=== PATIENT | female | born 1980 | race Hispanic/Latino ===

== ENCOUNTER 2016-10-11 15:51 | Outpatient (CLI) | payer MEDICAID ==
[2016-10-11 17:29] VITALS: BP 139/83
--- NOTE | 2016-10-12 08:05 | Ultrasound Report ---
ULTRASOUND BIOPHYSICAL PROFILE: History: well being Technique: Transabdominal ultrasound with Doppler interrogation. 2 - breathing movements 2 - movements 2 - posture and tone 2 - Qualitative amniotic fluid volume 8 - TOTAL SCORE OF POSSIBLE 8 Heart Rate (bpm) 124
--- NOTE | 2016-10-12 08:06 | Ultrasound Report ---
ULTRASOUND OB LIMITED History: well being Technique: Transabdominal ultrasound with Doppler interrogation. Gestation: Medel Position: Cephalic Amniotic Fluid: Normal HARVEY = 7.4 cm Heart Rate: 129 BPM
== END 2016-10-11 18:45 | disposition home or self-care (01) ==
LOC: TRG 15:51
PROVIDERS: ATTEND Obstetrics & Gynecology
DX: O47.03 False labor before 37 completed weeks of gestation, third trimester (principal); Z3A.34 34 weeks gestation of pregnancy
CPT/HCPCS: 59025; 76815; 76819

== ENCOUNTER 2016-10-20 18:02 | Outpatient (CLI) | payer MEDICAID ==
[2016-10-20 18:17] VITALS: BP 127/76
--- NOTE | 2016-10-21 08:01 | Ultrasound Report ---
BIOPHYSICAL PROFILE: INDICATION: Irregular heart rate. COMPARISON: 10/11/2016. TECHNIQUE: Transabdominal ultrasound with Doppler interrogation. 2 - breathing movements 2 - movements 2 - posture and tone 2 - Qualitative amniotic fluid volume 8 - TOTAL SCORE OF POSSIBLE 8 Heart Rate (bpm) 135
--- NOTE | 2016-10-21 08:07 | Ultrasound Report ---
OB LIMITED INDICATION: HARVEY. COMPARISON: 10/11/2016 TECHNIQUE: Transabdominal grayscale ultrasound with Doppler interrogation. Gestation: Medel Position: Cephalic Amniotic Fluid: WNL (7-24 cm) HARVEY = 15.4 cm Heart Rate: 135 BPM
== END 2016-10-20 19:32 | disposition home or self-care (01) ==
LOC: TRG 18:02
PROVIDERS: ATTEND Obstetrics & Gynecology
DX: O76 Abnormality in fetal heart rate and rhythm complicating labor and delivery (principal); Z3A.36 36 weeks gestation of pregnancy
CPT/HCPCS: 76815; 76819

== ENCOUNTER 2016-10-24 19:55 | Outpatient (CLI) | payer MEDICAID ==
[2016-10-24] MEDS ORDERED: LACTATED RINGERS 500 ML IV ONE (20:08)
[2016-10-24 20:33] LABS: Hematocrit 31.9 % (30.3-42.9); Hemoglobin 10.5 gm/dl (10.1-14.3); Mean Corpuscular HGB Conc 33 % (30-34); Mean Corpuscular Volume 78 fl (79-97); Platelet Count 227 K/mm3 (140-440); Red Blood Count 4.11 M/mm3 (3.65-5.03); Red Cell Distribution Width 13.5 % (13.2-15.2); White Blood Count 9.7 K/mm3 (4.5-11.0)
[2016-10-24 20:34] LABS: Mean Corpuscular Hemoglobin 26 pg (28-32)
[2016-10-24 20:36] LABS: Bacteria,Urine 1+ /HPF (Negative); Bilirubin,Urine NEG (Negative); Blood,Urine NEG (Negative); Ketones,Urine NEG (Negative); Leukocyte Esterase,Urine MOD (Negative); Mucus,Urine FEW /HPF; Nitrite,Urine NEG (Negative); Protein,Urine <15 mg/dL mg/dL (Negative); Urobilinogen,Urine < 2.0 mg/dL (<2.0)
[2016-10-24 20:50] LABS: Alanine Aminotransferase 7 units/L (7-56); Lactate Dehydrogenase 207 units/L (91-180)
[2016-10-24 22:45] VITALS: BP 109/59
== END 2016-10-24 23:07 | disposition home or self-care (01) ==
LOC: TRG 19:55
PROVIDERS: ATTEND Obstetrics & Gynecology
DX: O09.523 Supervision of elderly multigravida, third trimester (principal); Z3A.36 36 weeks gestation of pregnancy
CPT/HCPCS: 36415; 59025; 81001; 82565; 83615; 84450; 84460; 84550; 85027; J7120

== ENCOUNTER 2016-11-08 19:25 | Outpatient (CLI) | payer MEDICAID ==
[2016-11-08 20:47] LABS: Hematocrit 31.5 % (30.3-42.9); Hemoglobin 10.2 gm/dl (10.1-14.3); Mean Corpuscular HGB Conc 32 % (30-34); Mean Corpuscular Volume 77 fl (79-97); Platelet Count 211 K/mm3 (140-440); Red Blood Count 4.11 M/mm3 (3.65-5.03); Red Cell Distribution Width 14.1 % (13.2-15.2); White Blood Count 7.7 K/mm3 (4.5-11.0)
[2016-11-08 20:48] LABS: Mean Corpuscular Hemoglobin 25 pg (28-32)
[2016-11-08 20:50] LABS: Bilirubin,Urine NEG (Negative); Blood,Urine NEG (Negative); Ketones,Urine NEG (Negative); Leukocyte Esterase,Urine NEG (Negative); Nitrite,Urine NEG (Negative); Protein,Urine <15 mg/dL mg/dL (Negative); Urobilinogen,Urine < 2.0 mg/dL (<2.0); WBC,Urine < 1.0 /HPF (0.0-6.0)
[2016-11-08 21:14] LABS: Alanine Aminotransferase 6 units/L (7-56); Lactate Dehydrogenase 196 units/L (91-180); Uric Acid 6.3 mg/dL (3.5-7.6)
[2016-11-08 21:18] VITALS: BP 130/85
== END 2016-11-08 21:32 | disposition home or self-care (01) ==
LOC: TRG 19:25
PROVIDERS: ATTEND Obstetrics & Gynecology
DX: O09.523 Supervision of elderly multigravida, third trimester (principal); O47.1 False labor at or after 37 completed weeks of gestation; Z3A.38 38 weeks gestation of pregnancy
CPT/HCPCS: 36415; 59025; 81001; 82565; 83615; 84450; 84460; 84550; 85027